=== PATIENT | female | born 1950 | race Caucasian/White ===

== ENCOUNTER → 2017-12-12 | Outpatient (CLI) | payer OTHER | LOC: FIMAGING 12:41 | PROVIDERS: ATTEND Physician Assistant | DX: R91.1 Solitary pulmonary nodule (principal); F17.200 Nicotine dependence, unspecified, uncomplicated ==

== ENCOUNTER → 2017-12-27 | Outpatient (CLI) | payer OTHER | LOC: FIMAGING 13:11 | PROVIDERS: ATTEND Physician Assistant | DX: R91.1 Solitary pulmonary nodule (principal); R16.0 Hepatomegaly, not elsewhere classified; E04.1 Nontoxic single thyroid nodule ==

== ENCOUNTER 2017-12-30 16:35 | Emergency (ER) | payer OTHER ==
[2017-12-30 16:43] VITALS: BP 107/76
--- NOTE | 2017-12-30 17:24 | EDPHY ---
H & P Time Seen by Provider: 12/30/17 17:23 HPI/ROS: CHIEF COMPLAINT: Right knee pain and swelling HISTORY OF PRESENT ILLNESS: History of osteoarthritis, has been told by Dr. Perez from Orthopedics that she needs knee replacements. She does have some soreness, did go walking yesterday. Awakened today with right knee pain and swelling. Worse with movement. Not associated with skin changes or fever or chills. No trauma. REVIEW OF SYSTEMS: No weakness or numbness and foot, left knee is baseline. No chest pain or shortness of breath PAST MEDICAL HISTORY: Osteoarthritis Social history: Here with mother and partner General Appearance: Alert and conversant, cooperative. The right knee has an effusion. She can actively flex it to 90 and extend it fully. Passive range of motion is normal. No varus or valgus instability, Olga's is negative. Skin is not red or warm to the touch. Compartments and thigh and lower leg are soft. Joint stable. Emergency Department course/MDM: I think septic joint is unlikely. Fracture, ACL injury both unlikely. DVT unlikely. Odin wrap, knee brace, Tylenol and Motrin. Patient declined narcotic analgesics. Follow-up with her orthopedist next week. Smoking Status: Current every day smoker Constitutional: Initial Vital Signs Temperature (C) 37.6 C 12/30/17 16:40 Heart Rate 72 12/30/17 16:40 Respiratory Rate 17 12/30/17 16:40 Blood Pressure 107/76 12/30/17 16:40 O2 Sat (%) 95 12/30/17 16:40 O2 Delivery Mode Room Air Allergies/Adverse Reactions: codeine Allergy (Verified 12/30/17 16:40) Home Medications: Medication Instructions Recorded NK [No Known Home Meds] 12/30/17 MDM/Departure - MDM Imaging Results: Imaging Impressions Knee X-Ray 12/30/17 17:04 Impression: 1. No acute fracture. 2. 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 3. Knee effusion. - Depart Disposition: Home, Routine, Self-Care Clinical Impression: Right knee pain Qualifiers: Chronicity: acute Qualified Code(s): M25.561 - Pain in right knee Condition: Good Instructions: Swollen Knee Joint (ED) Additional Instructions: Wear your knee brace. Ibuprofen 600mg every 8 hours, and/or Tylenol 650mg every 8 hours as we discussed. Ice to right knee 20 min at a time several times a day as we discussed. Please follow-up with your orthopedic surgeon next week if you're not 100% better. Referrals: Yuliana Benitez PA [Primary Care Provider] - As per Instructions SAVANAH PEREZ [Retired Resigned] - As per Instructions
== END 2017-12-30 17:53 | disposition home or self-care (01) ==
DX: M25.561 Pain in right knee (principal); M13.861 Other specified arthritis, right knee; M11.261 Other chondrocalcinosis, right knee

== ENCOUNTER → 2018-01-11 | Outpatient (CLI) | payer OTHER | LOC: FIMAGING 13:54 | PROVIDERS: ATTEND Physician Assistant | DX: E04.1 Nontoxic single thyroid nodule (principal); K76.9 Liver disease, unspecified ==

== ENCOUNTER → 2018-02-02 | Outpatient (CLI) | payer OTHER | LOC: FIMAGING 09:18 | PROVIDERS: ATTEND Physician Assistant | DX: Z13.820 Encounter for screening for osteoporosis (principal); M85.89 Other specified disorders of bone density and structure, multiple sites; M54.9 Dorsalgia, unspecified; E07.9 Disorder of thyroid, unspecified; Z78.0 Asymptomatic menopausal state ==

== ENCOUNTER → 2018-02-23 | Outpatient (CLI) | payer OTHER | LOC: FIMAGING 10:00 | PROVIDERS: ATTEND Physician Assistant | DX: R92.8 Other abnormal and inconclusive findings on diagnostic imaging of breast (principal) ==

== ENCOUNTER → 2018-04-13 | Outpatient (CLI) | payer OTHER, MEDICARE | LOC: FIMAGING 12:42 | PROVIDERS: ATTEND Physician Assistant | DX: R91.1 Solitary pulmonary nodule (principal) ==

== ENCOUNTER → 2018-07-17 | Outpatient (CLI) | payer OTHER, MEDICARE | LOC: FIMAGING 08:51 | PROVIDERS: ATTEND Physician Assistant | DX: E04.2 Nontoxic multinodular goiter (principal); R91.1 Solitary pulmonary nodule ==